=== PATIENT | female | born 1975 | race African-American/Black ===

== ENCOUNTER 2018-01-10 21:38 | Emergency (ER) | payer BC ==
[~2018-01-10] VITALS: Ht 157.5 cm; Wt 90.1 kg
[2018-01-10 22:05] LABS: ALBUMIN 4.6 g/dL (3.2-4.8)
[2018-01-10 22:06] LABS: CHLORIDE 100 mEq/L (99-109); POTASSIUM 3.9 mEq/L (3.7-5.4); SODIUM 139 mEq/L (136-147)
[2018-01-10 22:08] LABS: GLUCOSE 107 mg/dL (70-99); TOTAL PROTEIN 7.7 g/dL (6.4-8.3)
[2018-01-10 22:10] LABS: TOTAL BILIRUBIN 0.4 mg/dL (0.0-1.0)
[2018-01-10 22:11] LABS: ALKALINE PHOSPHATASE 74 IU/L (3-129)
[2018-01-10 22:12] LABS: CREATININE 0.8 mg/dL (0.6-1.3)
[2018-01-10 22:13] LABS: AST (GOT) 16 IU/L (2-34); UREA NITROGEN (BUN) 13 mg/dL (9-23)
[2018-01-10 22:14] LABS: ALT (GPT) 9 IU/L (3-49)
[2018-01-10 22:17] LABS: GFR ESTIMATE (CALCULATED) > 59 mL/min/
[2018-01-10 22:21] LABS: QUANTITATIVE HCG < 4.0 MIU/ML
[2018-01-10 22:39] LABS: HEMOGLOBIN 12.6 G/DL (11.9-15.5); MCH 22.4 PG (29.0-34.0); MCHC 32.3 G/DL (30.0-36.0); MCV 69.4 FL (83-99); PLATELET COUNT 277 K/uL (156-360); RBC DIS.WIDTH-CV 14.1 % (11.8-14.6); RBC DIS.WIDTH-SD 34.7 % (39-53); RED BLOOD COUNT 5.62 M/uL (3.80-5.20); WHITE BLOOD COUNT 7.6 K/uL (4.1-10.2)
[2018-01-10 22:39] LABS: APPEARANCE CLOUDY ((CLEAR)); BILIRUBIN NEGATIVE; BLOOD NEGATIVE; COLOR YELLOW ((YELLOW)); GLUCOSE (STRIP) NEGATIVE; KETONES NEGATIVE; LEUKOCYTES NEGATIVE; NITRITE NEGATIVE; PROTEIN (STRIP) NEGATIVE; SPECIFIC GRAVITY 1.011 (1.000-1.030); UROBILINOGEN 0.2 MG/DL (0.2-1.0)
[2018-01-10 23:30] LABS: BACTERIA NONE SEEN /HPF; EPITHELIAL CELLS NONE SEEN /HPF; RED BLOOD CELLS 0-5 /HPF (0-5); UCUL ADDED? NO; WHITE BLOOD CELLS 0-5 /HPF (0-5)
[2018-01-10 23:32] LABS: MUCUS NONE SEEN /LPF
[2018-01-11] MEDS ORDERED: NORCO 5/3251 TABLET PO (01:10)
[2018-01-11 01:14] VITALS: BP 164/101
== END 2018-01-11 01:17 | disposition home or self-care (01) ==
LOC: EME 21:38
DX: R10.31 Right lower quadrant pain (principal); N83.201 Unspecified ovarian cyst, right side; I10 Essential (primary) hypertension; Z90.710 Acquired absence of both cervix and uterus
CPT/HCPCS: 74176; 76856; 80053; 81003; 84702; 85027; 99281; 99283; J1885